=== PATIENT | female | born 1955 | race Two or more races ===

== ENCOUNTER 2017-06-06 08:31 | Emergency (ER) | payer OTHER ==
[~2017-06-06] VITALS: Ht 154.9 cm; Wt 51.3 kg
[~2017-06-06 08:31] MED LIST: ACCUNEB0.63 MG/3 IH; AVELOX ABC PAC400 MG PO; MOTRIN800 MG PO; NASONEX17 GM NS; PHENABID D1 TAB.SR . PO; PHENERGAN25 MG/SUPP RC; Pulmicort 0.5 MG/2 ML AMPUL IH; RAYOS5 MG PO; SINGULAIR4 MG/PACKE PO; Singulair 10MG PO
== END 2017-06-06 11:16 | disposition home or self-care (01) ==
LOC: ER 08:31
DX: M54.5 Low back pain (principal)

== ENCOUNTER → 2019-06-01 | Outpatient (CLI) | payer OTHER | END | disposition home or self-care (01) | LOC: RAD 14:34 | DX: N62 Hypertrophy of breast (principal); E65 Localized adiposity ==

== ENCOUNTER 2019-08-13 15:45 | Emergency (ER) | payer OTHER ==
[~2019-08-13] VITALS: Ht 154.9 cm; Wt 50.8 kg
== END 2019-08-13 21:52 | disposition home or self-care (01) ==
LOC: ER 15:45
DX: K29.60 Other gastritis without bleeding (principal)

== ENCOUNTER 2019-08-16 11:57 | Emergency (ER) | payer OTHER ==
[~2019-08-16] VITALS: Ht 154.9 cm; Wt 50.8 kg
[2019-08-16] MEDS ORDERED: PROTONIX20 MG (12:37)
[2019-08-16] MEDS ORDERED: TAGAMET HB200 MG (12:38)
== END 2019-08-16 19:19 | disposition home or self-care (01) ==
LOC: ER 11:57
DX: K52.89 Other specified noninfective gastroenteritis and colitis (principal); E86.0 Dehydration; R10.817 Generalized abdominal tenderness

== ENCOUNTER 2021-03-28 18:42 | Emergency (ER) | payer OTHER ==
[~2021-03-28] VITALS: Ht 154.9 cm; Wt 49.0 kg
[~2021-03-28 18:42] MED LIST changes: +PROTONIX20 MG; +TAGAMET HB200 MG
== END 2021-03-28 22:27 | disposition home or self-care (01) ==
LOC: ER 18:42
DX: R11.2 Nausea with vomiting, unspecified (principal); E86.0 Dehydration; I10 Essential (primary) hypertension

== ENCOUNTER 2022-04-06 08:39 | Emergency (ER) | payer OTHER ==
[~2022-04-06] VITALS: Ht 154.9 cm; Wt 51.3 kg
[2022-04-06] MEDS ORDERED: NORFLEX100MG PO (10:12)
[2022-04-06] MEDS ORDERED: KETO10TA2 PO (10:12)
== END 2022-04-06 10:43 | disposition home or self-care (01) ==
LOC: ER 08:39
DX: M54.50 Low back pain, unspecified (principal)

== ENCOUNTER → 2023-02-20 | Emergency (ER) | payer OTHER ==
[~2023-02-20] VITALS: Ht 154.9 cm; Wt 46.7 kg
[~2023-02-20] MED LIST changes: +KETO10TA2 PO; +NORFLEX100MG PO
== END | disposition home or self-care (01) ==
LOC: ER 08:37
DX: M54.50 Low back pain, unspecified (principal); M19.90 Unspecified osteoarthritis, unspecified site; J45.909 Unspecified asthma, uncomplicated; Z88.8 Allergy status to other drugs, medicaments and biological substances
CPT/HCPCS: 96372; 99284; J1885; J2360

== ENCOUNTER 2023-04-30 09:12 | Emergency (ER) | payer OTHER ==
[~2023-04-30] VITALS: Ht 154.9 cm; Wt 47.6 kg
[2023-04-30 10:37] LABS: HEMATOCRIT 40.1 % (36.0-45.00); HEMOGLOBIN 14.1 g/dL (12.0-15.00); MEAN CELL VOLUME 88.9 fL (80.00-100.00); MEAN CORPUSCULAR HEMOGLOBIN 31.4 pg (27.00-32.0); MEAN CORPUSCULAR HGB CONC 35.2 g/dl (32.0-36.0); PLATELET COUNT 174 K/uL (150-450); RED CELL DISTRIBUTION WIDTH 13.5 % (11.5-14.5)
== END 2023-04-30 12:47 | disposition home or self-care (01) ==
LOC: ER 09:13
PROVIDERS: General Practice
DX: U07.1 COVID-19 (principal); Z88.8 Allergy status to other drugs, medicaments and biological substances; J45.909 Unspecified asthma, uncomplicated
CPT/HCPCS: 36415; 96372; 99284; J2405

== ENCOUNTER → 2023-06-28 07:29 | Outpatient (CLI) | payer OTHER | END | disposition home or self-care (01) | LOC: NUCLEAR 07:00 | PROVIDERS: ATTEND Internal Medicine | DX: I25.10 Atherosclerotic heart disease of native coronary artery without angina pectoris (principal) | CPT/HCPCS: 78452; 93017; A9500 ==

== ENCOUNTER 2023-07-21 09:11 | Emergency (ER) | payer OTHER ==
[~2023-07-21] VITALS: Ht 154.9 cm; Wt 46.7 kg
[2023-07-21] MEDS ORDERED: KETOROLAC TROMETHAMINE 60 MG VIAL IM STA (10:01)
== END 2023-07-21 10:09 | disposition home or self-care (01) ==
LOC: ER 09:11
DX: S93.692A Other sprain of left foot, initial encounter (principal); Z88.8 Allergy status to other drugs, medicaments and biological substances; J45.909 Unspecified asthma, uncomplicated
CPT/HCPCS: 96372; 99282; J1885

== ENCOUNTER 2023-07-27 09:59 | Outpatient (CLI) | payer OTHER | END 2023-07-27 10:03 | disposition home or self-care (01) | LOC: RAD 09:59 | DX: M25.572 Pain in left ankle and joints of left foot (principal) ==

== ENCOUNTER 2024-01-08 07:17 | Emergency (ER) | payer OTHER ==
[~2024-01-08] VITALS: Ht 154.9 cm; Wt 47.6 kg
[2024-01-08] MEDS ORDERED: LEVALBUTEROL HCL 1.25 MG/3 ML SOLUTION IH STA (08:39)
[2024-01-08] MEDS ORDERED: 0.9 % SODIUM CHLORIDE 500 ML IV STA (08:40)
[2024-01-08] MEDS ORDERED: CEFTRIAXONE SODIUM 1,000 MG VIAL IV STA (08:40)
[2024-01-08] MEDS ORDERED: METHYLPREDNISOLONE SOD SUCC 125 MG VIAL IV STA (08:41)
[2024-01-08] MEDS ORDERED: BUDESONIDE 0.5 MG/2 ML AMPUL.NEB IH STA (08:41)
[2024-01-08] MEDS ORDERED: IPRATROPIUM BROMIDE 0.5 MG/2.5 ML AMPUL.NEB IH SCH (08:45)
[2024-01-08] MEDS ORDERED: METHYLPREDNISOLONE SOD SUCC 125 MG VIAL ONE (08:54)
[2024-01-08] MEDS ORDERED: CEFTRIAXONE SODIUM 1,000 MG VIAL ONE (08:54)
[2024-01-08] MEDS ORDERED: BUDESONIDE 0.5 MG/2 ML AMPUL.NEB IH ONE (10:07)
[2024-01-08] MEDS ORDERED: IPRATROPIUM BROMIDE 0.5 MG/2.5 ML AMPUL.NEB IH ONE (10:07)
[2024-01-08] MEDS ORDERED: LEVALBUTEROL HCL 1.25 MG/3 ML SOLUTION IH ONE (10:07)
[2024-01-08 10:17] LABS: HEMATOCRIT 38.3 % (36.0-45.00); HEMOGLOBIN 13.3 g/dL (12.0-15.00); MEAN CELL VOLUME 88.9 fL (80.00-100.00); MEAN CORPUSCULAR HEMOGLOBIN 30.8 pg (27.00-32.0); MEAN CORPUSCULAR HGB CONC 34.7 g/dl (32.0-36.0); PLATELET COUNT 195 K/uL (150-450); RED BLOOD COUNT 4.31 M/uL (4.00-6.00); RED CELL DISTRIBUTION WIDTH 13.3 % (11.5-14.5)
== END 2024-01-08 12:34 | disposition home or self-care (01) ==
LOC: ER 07:19
PROVIDERS: General Practice
DX: J45.909 Unspecified asthma, uncomplicated (principal); R05.9 Cough, unspecified; Z20.822 Contact with and (suspected) exposure to COVID-19; Z88.5 Allergy status to narcotic agent
CPT/HCPCS: 36415; 94640; 96365; 99282; J0696; J3490; J7042

== ENCOUNTER 2024-01-09 07:21 | Emergency (ER) | payer OTHER ==
[~2024-01-09] VITALS: Ht 154.9 cm; Wt 47.6 kg
== END 2024-01-09 09:23 | disposition home or self-care (01) ==
LOC: ER 07:23
DX: J45.909 Unspecified asthma, uncomplicated (principal); J00 Acute nasopharyngitis [common cold]; Z88.5 Allergy status to narcotic agent

== ENCOUNTER 2024-05-21 18:18 | Emergency (ER) | payer OTHER ==
[~2024-05-21] VITALS: Ht 154.9 cm; Wt 45.4 kg
[2024-05-21] MEDS ORDERED: ONDANSETRON HCL 2 MG/ML VIAL IV ONE (21:00)
[2024-05-21] MEDS ORDERED: ONDANSETRON HCL 2 MG/ML VIAL ONE (21:16)
[2024-05-21 22:18] LABS: HEMATOCRIT 38.1 % (36.0-45.00); HEMOGLOBIN 13.3 g/dL (12.0-15.00); MEAN CELL VOLUME 88.4 fL (80.00-100.00); MEAN CORPUSCULAR HEMOGLOBIN 30.9 pg (27.00-32.0); PLATELET COUNT 185 K/uL (150-450); RED BLOOD COUNT 4.31 M/uL (4.00-6.00); RED CELL DISTRIBUTION WIDTH 13.4 % (11.5-14.5)
[2024-05-21] MEDS ORDERED: OSEL75CA PO (22:56)
[2024-05-21] MEDS ORDERED: ACETAMINOPHEN500 M1 PO (22:56)
[2024-05-21] MEDS ORDERED: GILTUSS COUGH-118 M1 PO (22:56)
== END 2024-05-21 23:04 | disposition home or self-care (01) ==
LOC: ER 18:21
PROVIDERS: Preventive Medicine Public Health & General Preventive Medicine
DX: R53.81 Other malaise (principal); J10.1 Influenza due to other identified influenza virus with other respiratory manifestations; Z20.822 Contact with and (suspected) exposure to COVID-19; Z88.5 Allergy status to narcotic agent